=== PATIENT | male | born 1985 | race Caucasian/White ===

== ENCOUNTER 2017-02-17 15:17 | Emergency (ER) | payer OTHER ==
[~2017-02-17] VITALS: Ht 177.8 cm; Wt 68.0 kg
[~2017-02-17 15:17] MED LIST: IBUP800T23 PO; METH500T3 PO
[2017-02-17 15:18] VITALS: BP 140/87; PULSE 98; RESP 20; TEMP 99; O2SAT 98
--- NOTE | 2017-02-17 15:37 | PD ---
Physical Exam Date Seen by Provider: Feb 17, 2017 Time Seen by Provider: 15:31 Narrative 31 YOWM C/O HERE FOR MEDICAL CLEARANCE H/O OPIATE ABUSE . TOOK SUBOXONE THIS AM FROM A FRIEND. H/O DILAUDID AND HEROIN IVDA. NO SUICIDAL OR HOMICIDAL IDEATION. VS REVIEWED AWAITING BED PLACEMENT Data Data Last Documented VS Vital Signs Date Time Temp Pulse Resp B/P Pulse Ox O2 Delivery O2 Flow Rate FiO2 02/17/17 15:18 99.0 98 20 140/87 98 Room Air MDM Supervised Visit with SUSANNE: Jose Manuel Burgos Feb 17, 2017 15:37
[2017-02-17] MEDS ORDERED: PAXI30TA7 PO (22:00)
--- NOTE | 2017-02-17 22:00 | PD ---
HPI Chief Complaint: Psychiatric Symptoms Time Seen by Provider: 20:46 Travel History International Travel<30 days: No Contact w/Intl Traveler<30days: No Traveled to known affect area: No History of Present Illness HPI The patient's 31 years old. He arrives voluntarily with his father. He states to me he has recently relapsed with IV drug abuse. He has no specific medical complaint. He requests a and depressant prescription however denies suicidal and homicidal ideation. He states he intends to stop abusing IV drugs however having discontinued his IV drug abuse 4 days ago withdrawals at the moment are challenging for him. PFSH Past Surgical History Other Surgery: Yes (Undescended testicle) Social History Alcohol Use: Yes (Occ.) Tobacco Use: Yes (1/2 PPD) Substance Use: No Allergies-Medications (Allergen,Severity, Reaction): Coded Allergies: No Known Allergies (Verified , 08/08/15) Reported Meds & Prescriptions Reported Meds & Active Scripts Active Paxil (Paroxetine HCl) 30 Mg Tab 30 Mg PO DAILY Methocarbamol 500 Mg Tab 500 Mg PO QID PRN Ibuprofen 800 Mg Tab 800 Mg PO Q6H PRN Review of Systems Except as stated in HPI: all other systems reviewed are Neg General / Constitutional: No: Fever Physical Exam Narrative GENERAL: 31 yo , WNWD, cooperative pleasant SKIN: Warm and dry. HEAD: Atraumatic. Normocephalic. EYES: Pupils equal and round. No scleral icterus. No injection or drainage. ENT: No nasal bleeding or discharge. Mucous membranes pink and moist. NECK: Trachea midline. No JVD. CARDIOVASCULAR: Regular rate and rhythm. No murmur. RESPIRATORY: No accessory muscle use. Clear to auscultation. Breath sounds equal bilaterally. GASTROINTESTINAL: Abdomen soft, non-tender, nondistended. Hepatic and splenic margins not palpable. MUSCULOSKELETAL: Extremities without clubbing, cyanosis, or edema. No obvious deformities. NEUROLOGICAL: Awake and alert. No obvious cranial nerve deficits. Motor grossly within normal limits. Five out of 5 muscle strength in the arms and legs. Normal speech. PSYCHIATRIC: Pt denies SI/HI. He reports depressed mood but would never hurt himself on account of the harmful effect of hurting his mother. Data Data Last Documented VS Vital Signs Date Time Temp Pulse Resp B/P Pulse Ox O2 Delivery O2 Flow Rate FiO2 02/17/17 15:18 99.0 98 20 140/87 98 Room Air MDM Medical Decision Making Medical Screen Exam Complete: Yes Emergency Medical Condition: Yes Differential Diagnosis Altered mental status/psychosis due to infection/environmental exposure/ metabolic abnormality, polypharmacy, alcohol abuse/intoxication, illicit or prescribed drug abuse, malingering/secondary gain, non-organic psychiatric disease Narrative Course Patient arrives voluntarily with his father. His father is worried because the patient has insomnia at and sleeps throughout most of the day and walks about the house at night. The patient denies suicidal ideation and homicidal ideation. He is unfortunately recovering from IV drug addiction, opioids. He lives with his parents and has a strong social support network. Father states he will attend to the patient and return with a low threshold for any reason. Diagnosis Primary Impression: Depression Qualified Code: F32.9 - Depression, unspecified depression type Referrals: [facility] call for appointment Additional Instructions: You have a choice when it comes to health care, and we are glad that you chose [facility]. Hopefully, we have met your expectations on today's visit. You are welcome to return to [facility] at any time, as we are committed to meeting the health care needs of our community. Med/Other Pt SpecificInfo: Prescription(s) given Scripts Paroxetine (Paxil)30 Mg Tab30 Mg PO DAILY #30 TAB Ref 0 Prov:Carlos Up MD 02/17/17 Disposition: 01 DISCHARGE HOME Condition: Stable Carlos Up MD Feb 17, 2017 22:00
== END 2017-02-17 22:37 | disposition home or self-care (01) ==
LOC: NEPD 15:17
DX: F32.9 Major depressive disorder, single episode, unspecified (principal); F11.10 Opioid abuse, uncomplicated; F17.290 Nicotine dependence, other tobacco product, uncomplicated; F10.10 Alcohol abuse, uncomplicated
CPT/HCPCS: 99283

== ENCOUNTER 2017-11-18 12:42 | Emergency (ER) | payer BC ==
[~2017-11-18] VITALS: Ht 157.5 cm; Wt 72.0 kg
[~2017-11-18 12:42] MED LIST changes: +PAXI30TA7 PO
[2017-11-18 12:48] VITALS: BP 125/68; PULSE 130; RESP 16; TEMP 99.3; O2SAT 94
[2017-11-18 13:01] VITALS: O2SAT 98
[2017-11-18] MEDS ORDERED: BUPR150CR PO (13:05)
[2017-11-18] MEDS ORDERED: BENA25CA4 PO ×2 (13:05→13:12)
[2017-11-18] MEDS ORDERED: SODIUM CHLOR 0.9% 1000 ML INJ 1,000 ML IV SCH (13:09)
[2017-11-18] MEDS ORDERED: PRED20 PO (13:12)
[2017-11-18] MEDS ORDERED: FAMO1TAB37 PO (13:12)
--- NOTE | 2017-11-18 13:13 | PD ---
HPI Chief Complaint: Allergic/Adverse Reaction Time Seen by Provider: 12:56 Travel History International Travel<30 days: No Contact w/Intl Traveler<30days: No Traveled to known affect area: No History of Present Illness HPI 32-year-old male complains of IV drug use. He reports injecting crack cocaine about 45 minutes ago. He had mixed the crack cocaine for lemon juice and left it out for 6 hours and then sheltered and injected it. Shortly thereafter he developed redness all over the body of the burning quality. He also reports swelling in the lips and hands it feels like form. He denies difficulty breathing. He denies fullness in the throat. 30 minutes ago patient ingested 2 tablets of Benadryl. PFSH Past Medical History Diminished Hearing: No Influenza Vaccination: No ?: Not Past Surgical History Surgical History: No Previous Surgery Other Surgery: Yes (Undescended testicle) Social History Alcohol Use: Yes (Occ.) Tobacco Use: Yes (1/2 PPD) Substance Use: Yes (IV DRUGS USED COCAINE TODAY) Allergies-Medications (Allergen,Severity, Reaction): Coded Allergies: No Known Allergies (Verified Adverse Reaction, Unknown, 11/18/17) Reported Meds & Prescriptions Reported Meds & Active Scripts Active Pepcid (Famotidine) 20 Mg Tab 20 Mg PO BID 7 Days Prednisone 20 Mg Tab 40 Mg PO DAILY 4 Days Take 40 mg (2 tablets) daily for 5 days Benadryl Allergy (Diphenhydramine HCl) 25 Mg Cap 50 Mg PO ONCE 5 Days Reported Wellbutrin SR 12 HR (Bupropion HCl) 150 Mg Tab 150 Mg PO Q12HR Review of Systems Except as stated in HPI: all other systems reviewed are Neg General / Constitutional: No: Fever Physical Exam Narrative GENERAL: 32-year-old male pleasant well-nourished well-developed reasonably cooperative Vital Signs Date Time Temp Pulse Resp B/P (MAP) Pulse Ox O2 Delivery O2 Flow Rate FiO2 11/18/17 12:48 99.3 130 16 125/68 (87) 94 SKIN: Generalized erythema involving the trunk with some urticarial lesions about the extremities. HEAD: Atraumatic. Normocephalic. EYES: Pupils equal and round. No scleral icterus. No injection or drainage. ENT: No nasal bleeding or discharge. Mucous membranes pink and moist. Posterior oropharynx is widely patent. Trace labial edema noted. NECK: Trachea midline. No JVD. CARDIOVASCULAR: Tachycardia. Regular rhythm. RESPIRATORY: No accessory muscle use. Clear to auscultation. Breath sounds equal bilaterally. GASTROINTESTINAL: Abdomen soft, non-tender, nondistended. Hepatic and splenic margins not palpable. MUSCULOSKELETAL: Extremities without clubbing, cyanosis, or edema. No obvious deformities. NEUROLOGICAL: Awake and alert. No obvious cranial nerve deficits. Motor grossly within normal limits. Five out of 5 muscle strength in the arms and legs. Normal speech. PSYCHIATRIC: Appropriate mood and affect; insight and judgment normal. Data Data Last Documented VS Vital Signs Date Time Temp Pulse Resp B/P (MAP) Pulse Ox O2 Delivery O2 Flow Rate FiO2 11/18/17 14:24 83 18 113/69 (84) 98 Room Air 11/18/17 12:48 99.3 Orders Orders Ecg Monitoring (11/18/17 13:09) Iv Access Insert/Monitor (11/18/17 13:09) Oximetry (11/18/17 13:09) Methylprednisolone So Succ Inj (Solumedr (11/18/17 13:15) Famotidine Inj (Pepcid Inj) (11/18/17 13:15) Sodium Chlor 0.9% 1000 Ml Inj (Ns 1000 M (11/18/17 13:09) Sodium Chloride 0.9% Flush (Ns Flush) (11/18/17 13:15) Sodium Chlor 0.9% 1000 Ml Inj (Ns 1000 M (11/18/17 13:15) Ed Discharge Order (11/18/17 14:13) [facility] Medical Decision Making Medical Screen Exam Complete: Yes Emergency Medical Condition: Yes Medical Record Reviewed: Yes Differential Diagnosis Allergic reaction, anaphylaxis, dermatitis Narrative Course The patient received Solu-Medrol, Pepcid and 2 L normal saline. Upon arrival he had confluent erythematous rash involving the trunk and proximal arms with some blotchy erythema at the distal extremities. Erythema resolved during the ED course. Scripts as below. No airway involvement. Pt counseled re drug abuse. Return precautions discussed. Diagnosis Primary Impression: Allergic reaction Qualified Codes: T78.40XA - Allergy, unspecified, initial encounter Referrals: [facility] call for appointment Med/Other Pt SpecificInfo: Prescription(s) given Scripts Famotidine (Pepcid) 20 Mg Tab 20 MG PO BID for 7 Days, #14 TAB 0 Refills Prov: Carlos Up MD 11/18/17 Prednisone (Prednisone) 20 Mg Tab 40 MG PO DAILY for 4 Days, #8 TAB 0 Refills Take 40 mg (2 tablets) daily for 5 days Prov: Cralos Up MD 11/18/17 Diphenhydramine HCl (Benadryl Allergy) 25 Mg Cap 50 MG PO ONCE for 5 Days Prov: Carlos Up MD 11/18/17 Disposition: 01 DISCHARGE HOME Condition: Stable Carlos Up MD November 18, 2017 13:13
[2017-11-18] MEDS ORDERED: FAMOTIDINE 20 MG/2 ML VIAL IV PUSH ONE (13:15)
[2017-11-18] MEDS ORDERED: SODIUM CHLORIDE 0.9% FLUSH 10 ML FLUSH IV FLUSH PRN (13:15)
[2017-11-18] MEDS ORDERED: SODIUM CHLOR 0.9% 1000 ML INJ 1,000 ML IV ONE (13:15)
[2017-11-18] MEDS ORDERED: methylPREDNISolone SOD SUCC 125 MG/2 ML VIAL IV PUSH ONE (13:15)
[2017-11-18 14:24] VITALS: BP 113/69; PULSE 83; RESP 18; O2SAT 98
== END 2017-11-18 14:45 | disposition home or self-care (01) ==
LOC: PHEFT 12:42
DX: T78.40XA Allergy, unspecified, initial encounter (principal); R21 Rash and other nonspecific skin eruption; L53.9 Erythematous condition, unspecified; R00.0 Tachycardia, unspecified; F17.200 Nicotine dependence, unspecified, uncomplicated; Z79.899 Other long term (current) drug therapy
CPT/HCPCS: 96361; 96374; 96375; 99284; J2930; J7030